=== PATIENT | female | born 1965 | race Caucasian/White ===

== ENCOUNTER 2019-12-05 22:37 | Emergency (ER) | payer OTHER ==
[~2019-12-05] VITALS: Ht 167.6 cm; Wt 83.9 kg
[2019-12-05] MEDS ORDERED: LIPITOR40 MG PO (22:46)
[2019-12-05] MEDS ORDERED: INDERAL LA120 M1 PO (22:47)
[2019-12-05] MEDS ORDERED: ESTRADIOL 1 MG T1 M1 PO (22:48)
[2019-12-05] MEDS ORDERED: FLONASE 0.05%50 MCG NASAL (22:48)
[2019-12-05] MEDS ORDERED: CELEBREX 200 M200 MG PO (22:48)
[2019-12-05] MEDS ORDERED: DETROL LA2 MG PO (22:50)
[2019-12-05] MEDS ORDERED: [UNRECOGNIZED DRUG - OTHER] PO (22:50)
[2019-12-05] MEDS ORDERED: NAMENDA 5 MG TAB5 M1 PO (22:50)
[2019-12-05] MEDS ORDERED: PROCHLORPERAZIN10 MG PO (22:51)
[2019-12-05] MEDS ORDERED: ZOFRAN8 MG PO (22:51)
[2019-12-05] MEDS ORDERED: MAGNESIUM250 M1 PO (22:51)
[2019-12-05] MEDS ORDERED: RELPAX40 MG PO (22:52)
[2019-12-05] MEDS ORDERED: NURTEC ODT75 MG PO (22:52)
[2019-12-05] MEDS ORDERED: TYLENOL325 MG PO (22:53)
[2019-12-06 03:40] VITALS: BP 108/56
== END 2019-12-06 03:41 | disposition home or self-care (01) ==
LOC: M.ERS 22:37
DX: R51 Headache (principal); R11.0 Nausea; K21.9 Gastro-esophageal reflux disease without esophagitis; Z79.899 Other long term (current) drug therapy; Z88.6 Allergy status to analgesic agent; Z88.0 Allergy status to penicillin; Z88.2 Allergy status to sulfonamides; Z98.890 Other specified postprocedural states

== ENCOUNTER 2020-01-01 05:40 | Emergency (ER) | payer OTHER ==
[~2020-01-01] VITALS: Ht 167.6 cm; Wt 86.2 kg
[~2020-01-01 05:40] MED LIST: CELEBREX 200 M200 MG PO; DETROL LA2 MG PO; ESTRADIOL 1 MG T1 M1 PO; FLONASE 0.05%50 MCG NASAL; INDERAL LA120 M1 PO; LIPITOR40 MG PO; MAGNESIUM250 M1 PO; NAMENDA 5 MG TAB5 M1 PO; NURTEC ODT75 MG PO; PROCHLORPERAZIN10 MG PO; RELPAX40 MG PO; TYLENOL325 MG PO; ZOFRAN8 MG PO; [UNRECOGNIZED DRUG - OTHER] PO
[2020-01-01] MEDS ORDERED: PROMS25 WY RECTAL (06:40)
[2020-01-01] MEDS ORDERED: PHENERGAN 25 MG25 M1 PO (06:40)
[2020-01-01 07:07] VITALS: BP 110/59
== END 2020-01-01 07:07 | disposition home or self-care (01) ==
LOC: M.ERS 05:40
DX: G43.909 Migraine, unspecified, not intractable, without status migrainosus (principal); R11.2 Nausea with vomiting, unspecified; K21.9 Gastro-esophageal reflux disease without esophagitis; Z90.49 Acquired absence of other specified parts of digestive tract; Z90.710 Acquired absence of both cervix and uterus; Z88.6 Allergy status to analgesic agent; Z88.0 Allergy status to penicillin; Z88.2 Allergy status to sulfonamides

== ENCOUNTER 2020-10-18 21:25 | Emergency (ER) | payer OTHER ==
[~2020-10-18] VITALS: Ht 167.6 cm; Wt 86.2 kg
[~2020-10-18 21:25] MED LIST changes: +PHENERGAN 25 MG25 M1 PO; +PROMS25 WY RECTAL
[2020-10-18] MEDS ORDERED: INDERAL LA120 M1 PO (22:17)
[2020-10-19 01:40] VITALS: BP 108/62
== END 2020-10-19 01:40 | disposition home or self-care (01) ==
LOC: M.ERS 21:25
DX: S90.31XA Contusion of right foot, initial encounter (principal); G43.909 Migraine, unspecified, not intractable, without status migrainosus; K21.9 Gastro-esophageal reflux disease without esophagitis; Z79.899 Other long term (current) drug therapy; Z90.49 Acquired absence of other specified parts of digestive tract; Z98.890 Other specified postprocedural states; Z88.6 Allergy status to analgesic agent; Z88.0 Allergy status to penicillin; Z88.2 Allergy status to sulfonamides; W18.30XA Fall on same level, unspecified, initial encounter; Y93.89 Activity, other specified; Y92.89 Other specified places as the place of occurrence of the external cause; Y99.8 Other external cause status